=== PATIENT | female | born 1965 | race African-American/Black ===

== ENCOUNTER 2024-08-21 18:08 | Emergency (ER) | payer SELFPAY ==
[2024-08-21 18:12] VITALS: BP 153/78; PULSE 100; RESP 19; TEMP 36.6; O2SAT 99; BMI 36.6
--- NOTE | 2024-08-21 18:14 | ED.GENADULT ---
HPI - General Adult General Chief complaint: Urogenital-Female Stated complaint: ?URI & URI Time Seen by Provider: 08/21/24 19:58 Source: patient, RN notes reviewed and old records reviewed Mode of arrival: ambulatory Limitations: no limitations History of Present Illness ED Provider: Reggie LARRY narrative: Patient is a 58-year-old female presenting to the emergency department with complaint of dysuria as well as dark urine for the past 3 days. Also reports left flank pain and feeling general malaise. Has recently had nasal congestion, sore throat and right ear pain. Denies fevers. Denies abdominal pain, nausea, vomiting, diarrhea. Denies hematuria. MD complaint: Dysuria Onset (ago): day(s) Treatments prior to arrival: none Related Data Previous Rx's ?Medication ?Instructions ?Recorded cefuroxime axetil 250 mg tablet 250 mg PO BID #13 tabs 08/21/24 ondansetron 4 mg disintegrating 4 mg PO Q8H PRN nausea and 08/21/24 tablet vomiting #10 tabs phenazopyridine 100 mg tablet 100 mg PO TID PRN pain 6 doses #6 08/21/24 tabs Allergies Allergy/AdvReac Type Severity Reaction Status Date / Time No Known Allergies Allergy Verified 08/21/24 18:14 Review of Systems Review of Systems: As per HPI Yes all other systems are reviewed and are negative Constitutional: Constitutional: Reports as per HPI [facility] Social History Social History Advance Directives: No Advance Directives Information Provided: Yes Do you have a plan to hurt others: No Plan Physical Exam ED Vital Signs: Vital Signs - 24 hr 08/21/24 18:12 08/21/24 21:25 08/21/24 21:35 Temperature 98 F 98 F 98 F Pulse Rate 100 92 92 Respiratory Rate 19 20 20 Blood Pressure 153/78 H 148/76 H 148/76 H Pulse Oximetry 99 98 98 Oxygen Delivery Method Room Air Room Air Room Air BMI result Body Mass Index 36.6 Vital signs have been reviewed and appear to be correct. Blood pressure elevated. Heart rate normal. Respiratory rate normal. Temperature normal. Oxygen saturation normal. Const General: cooperative, healthy appearing and no acute distress Orientation/consciousness: oriented to person, oriented to place, oriented to time and patient oriented x3 Limitations: no limitations HENMT Head: Yes normocephalic and Yes atraumatic Ears: external ears normal General nose exam: Normal external nose present Face and sinus: Yes face symmetric Mouth: oropharynx normal and moist mucous membranes Throat: Yes uvula midline Eyes Pupils: Equal, round and reactive pupils present Neck Neck: Yes normal visual inspection and Yes supple Resp Effort & Inspection: normal respiratory effort and able to speak in complete sentences Auscultation: clear to auscultation bilaterally Cardio Rate: regular rate Rhythm: regular rhythm Heart sounds: S1 normal heart sound present and S2 normal heart sound present GI Palpation (GI): Soft to palpation and nontender Auscultation: normoactive bowel sounds General: Yes no CVA tenderness Back/Spine/Pelvis Back: no CVA tenderness Skin General skin exam: elasticity normal and turgor normal Neuro General: oriented to person, oriented to place, oriented to time, patient oriented x3, moves all extremities, no focal motor deficits and CN's II-XI intact bilaterally Cranial nerves: Yes Equal, round and reactive pupils present Cognition (Neuro): normal cognition Extrem General: Yes full ROM, Yes no pedal edema and Yes no calf tenderness Psych Mental Status: mental status grossly normal Affect: normal affect Thought process: Normal thought process present Course Course Course Narrative: This is a Rapid Medical Exam performed in triage by Sharonda Faulkner PA-C. Full HPI, ROS and PE to be performed by primary ED provider. 58-year-old female presenting to the ED c/o dysuria, dark urine, left flank pain, chills, and feeling unwell x 3 days. Also reports sore throat and ear pain. PE: Nontoxic appearing, +L CVAT, abd soft Plan: labs, UA, viral testing Medications Administered Discontinued Medications Generic Name Dose Route Start Last Admin Trade Name Chel PRN Reason Stop Dose Admin Cefuroxime Axetil 250 mg 08/21/24 21:17 08/21/24 21:26 Cefuroxime Axetil 250 Mg Tablet PO 08/21/24 21:18 250 mg ONCE ONE Administration Ondansetron HCl 4 mg 08/21/24 21:17 08/21/24 21:25 Ondansetron Odt 4 Mg Tab.Rapdis TRANSLINGU 08/21/24 21:18 4 mg ONCE ONE Administration Phenazopyridine HCl 200 mg 08/21/24 21:17 08/21/24 21:27 Phenazopyridine Hcl 200 Mg Tablet PO 08/21/24 21:18 200 mg ONCE ONE Administration Medical Decision Making Medical Decision Making [facility] Narrative: Patient is a 58-year-old female presenting to the emergency department with complaint of dysuria as well as dark urine for the past 3 days. On exam patient is awake, A+Ox3, BP elevated, VS otherwise WNL, afebrile, normal neurological exam without focal deficits, physical exam findings as above. Given reported symptoms and physical exam findings, initial differential includes but is not limited to UTI, pyelonephritis, viral illness, COVID, flu, RSV, otitis media. Labs unremarkable, no evidence of DAVID, no leukocytosis. Viral serology negative. Urinalysis notable for 1+ leukocytes, 2+ blood, positive nitrites, 11-20 wbc's, 4+ bacteria. Will treat for UTI with cefuroxime. Will send prescription for Zofran for nausea as well as Pyridium for discomfort. Advised patient to begin using normal saline spray to decrease mucus/sinus pressure. Follow-up with PCP as needed. Return precautions discussed at bedside. Patient verbalized understanding of and agreement with plan. Differential Diagnosis Differential Diagnoses: The differential diagnosis associated with the presentation includes As per [facility] Admission/Observation Consideration of admission/observation: Escalation of care including admission/observation considered Patient would have been admitted to the hospital had their work up had any findings where hospital admission was appropriate and their clinical presentation warranted hospital admission. Lab Data [facility] Lab Attestation statement: I reviewed the patient's lab results. As per [facility] 08/21/24 18:28 08/21/24 18:28 Labs: Lab Results 08/21/24 Range/Units 18:28 WBC 8.5 (4.8-10.8) X10*3/uL RBC 4.94 (4.20-5.50) X10*6/uL Hgb 13.2 (12.0-16.0) g/dl Hct 40.0 (37.0-47.0) % MCV 81.0 (80.0-98.0) fL MCH 26.7 L (27.0-33.0) pg MCHC 33.0 (31.0-35.0) g/dl RDW 13.2 (11.0-16.0) % Plt Count 333 (160-400) X10*3/uL MPV 10.4 (9.4-12.3) fL Immature Gran % (Auto) 0.1 (0.0-0.4) % Neut % (Auto) 55.4 (45-73) % Lymph % (Auto) 30.7 (20-40) % [place] % (Auto) 8.2 (2-11) % Eos % (Auto) 5.2 H (0-4) % Baso % (Auto) 0.4 (0-2) % Lymph # (Auto) 2.6 (1.2-4.9) X10*3/uL [place] # (Auto) 0.7 (0.1-1.2) X10*3/uL Eos # (Auto) 0.4 (0.0-0.4) X10*3/uL Baso # (Auto) 0.0 (0.0-0.2) X10*3/uL Abs Immat Gran (auto) 0.01 (0.00-0.03) X10*3/uL Absolute Neuts (auto) 4.7 (2.0-8.3) x10*3/uL Absolute Nucleated RBC 0.000 (0.0-0.012) X10*3/uL Nucleated RBC % (auto) 0.0 (0.0-0.2) /100WBC Sodium 142 (135-145) mmol/L Potassium 4.2 (3.3-5.1) mmol/L Chloride 110 H (96-108) mmol/L Carbon Dioxide 26 (22-29) mmol/L Anion Gap 10 L (12-20) BUN 19 H (9-16) mg/dL Creatinine 0.83 (0.5-1.4) mg/dL Estim Creat Clear Calc 76.4 Estimated GFR > 60 Random Glucose 100 (60-115) mg/dL Calcium 9.3 (8.4-10.2) mg/dL Magnesium 2.1 (1.6-2.6) mg/dL Total Bilirubin 0.2 (0.0-1.0) mg/dL Direct Bilirubin < 0.2 (0.0-0.5) mg/dL AST 25 (5-31) U/L ALT 33 H (0-31) U/L Alkaline Phosphatase 70 (39-117) U/L Total Protein 7.8 (6.5-8.0) g/dL Albumin 4.2 (3.5-5.0) g/dL Lipase 26 (8-78) U/L Urine Color Yellow Urine Appearance Clear Urine pH 5.5 (5.0-9.0) Ur Specific [place] 1.025 (1.005-1.025) Urine Protein Negative (Neg-Trace) mg/dL Urine Glucose (UA) Negative (Negative) mg/dL Urine Ketones Trace (Negative) mg/dL Urine Blood Moderate (2+) H (Negative) Urine Nitrite Positive H (Negative) Ur Leukocyte Esterase Small (1+) H (Negative) Urine RBC 3-5 H (0-2) /HPF Urine WBC 11-20 (0-5) /HPF Ur Squamous Epith Cells 0-2 (0-2) /HPF Urine Bacteria 4+ (None Seen) Hyaline Casts 0-2 (0-2) /LPF Influenza Type A (PCR) NEGATIVE (Negative) Influenza Type B (PCR) NEGATIVE (Negative) RSV RNA Qual (PCR) NEGATIVE (Negative) SARS-CoV-2 RNA (RT-PCR) NEGATIVE (Negative) External Record Review External record reviewed: Inpatient record, Office record and Outpatient record Prescription Management I considered prescription management with: Pain Medication, Antibiotic and Other Attestation Attending Attestation: I was personally present and available for consultation in the ED. I have reviewed everything on the chart that is available and agree with the documentation provided by the KATHRYN including discussion about the assessment, treatment plan and discussion. Based on medical record the care appears appropriate. Roel Nair MD [facility] Emergency Medicine Discharge Plan Discharge Clinical Impression: Urinary tract infection, Viral URI Patient Disposition: Home, Self-Care Instructions: Urinary Tract Infection in Women (DC), Upper Respiratory Infection (DC), Viral Syndrome (ED) Additional Instructions: You have been evaluated in the emergency department today for your urinary symptoms. Your evaluation, including urinalysis, suggests that your symptoms are due to urinary tract infection. Please take your prescribed antibiotics for the full course of medication as directed. You are also being prescribed ondansetron for nausea and phenazopyridine for bladder discomfort. Take all medications as prescribed. We also recommend that you begin using over the counter nasal saline spray several times daily to decrease your congestion. Please follow-up with your primary care provider within 2 days. Return to the emergency department if you experience fevers 100.4? F or greater, worsening or uncontrolled pain, vomiting, flank pain, or for any other concerning symptoms. Prescriptions: New ondansetron 4 mg tablet,disintegrating 4 mg PO Q8H PRN (Reason: nausea and vomiting) Qty: 10 0RF phenazopyridine 100 mg tablet 100 mg PO TID PRN (Reason: pain) Qty: 6 0RF cefuroxime axetil 250 mg tablet 250 mg PO BID Qty: 13 0RF Stand Alone Forms: Work/School Release Interventions: ED Discharge Assessment Last Done: 08/21/24 21:35 Discharge Date/Time: 08/21/24 21:35 Print Language: Sami
[2024-08-21 18:33] LABS: MANUAL DIFF FLAG NO
[2024-08-21 18:50] LABS: Basophils Percent Auto 0.4 % (0-2); Eosinophils Absolute Auto 0.4 X10*3/uL (0.0-0.4); Eosinophils Percent Auto 5.2 % (0-4); Hemoglobin 13.2 g/dl (12.0-16.0); Imm Gran Abs Auto 0.01 X10*3/uL (0.00-0.03); Imm Gran Pct Auto 0.1 % (0.0-0.4); Lymphocytes Absolute Auto 2.6 X10*3/uL (1.2-4.9); Lymphocytes Percent Auto 30.7 % (20-40); Mean Corpuscular Hemoglobin 26.7 pg (27.0-33.0); Mean Platelet Volume 10.4 fL (9.4-12.3); Monocytes Absolute Auto 0.7 X10*3/uL (0.1-1.2); Monocytes Percent Auto 8.2 % (2-11); Neutrophils Absolute Auto 4.7 x10*3/uL (2.0-8.3); Neutrophils Percent Auto 55.4 % (45-73); Platelet Count 333 X10*3/uL (160-400); Red Blood Count 4.94 X10*6/uL (4.20-5.50); Red Cell Distribution Width 13.2 % (11.0-16.0); White Blood Count 8.5 X10*3/uL (4.8-10.8)
[2024-08-21 18:52] LABS: Appearance Urine Clear; Color Urine Yellow; Glucose Urine UA Negative (Negative); Leukocyte Esterase Urine Small (1+) (Negative); Nitrite Urine Positive (Negative); PH 5.5 (5.0-9.0); Specific Gravity - Urine 1.025 (1.005-1.025); UMIC TRIGGER UACC YES; Urine Blood Moderate (2+) (Negative); Urine Ketones Trace mg/dL (Negative); Urine Protein Negative (Neg-Trace)
[2024-08-21 18:53] LABS: Alanine Aminotransferase 33 U/L (0-31); Albumin Level 4.2 g/dL (3.5-5.0); Alkaline Phosphatase 70 U/L (39-117); Anion Gap 10 (12-20); Aspartate Amino Transferase 25 U/L (5-31); Bilirubin Direct < 0.2 mg/dL (0.0-0.5); Bilirubin Total 0.2 mg/dL (0.0-1.0); Blood Urea Nitrogen 19 mg/dL (9-16); Calcium 9.3 mg/dL (8.4-10.2); Carbon Dioxide 26 mmol/L (22-29); Chloride 110 mmol/L (96-108); Creatinine Clr Calc Pharmacy 76.4; Estimated Glomerular Filt Rate > 60; Glucose Random 100 mg/dL (60-115); Lipase 26 U/L (8-78); Magnesium 2.1 mg/dL (1.6-2.6); Potassium 4.2 mmol/L (3.3-5.1); Sodium 142 mmol/L (135-145); Total Protein 7.8 g/dL (6.5-8.0)
[2024-08-21 19:02] LABS: Bacteria Urine 4+ (None Seen); Hyaline Casts Urine 0-2 /LPF (0-2); Squamous Epithelial Cell Urine 0-2 /HPF (0-2); UACC Culture Trigger YES
[2024-08-21 19:13] LABS: Influenza A PCR NEGATIVE (Negative); Influenza B PCR NEGATIVE (Negative); Resp Syncy Virus RNA Qual PCR NEGATIVE (Negative); SARS COV2 PCR INHOUSE NEGATIVE (Negative)
[2024-08-21 21:25] VITALS: BP 148/76; PULSE 92; RESP 20; TEMP 36.6; O2SAT 98
[2024-08-21] MEDS: Ondansetron ODT 4 MG TAB.RAPDIS TRANSLINGU (21:25)
[2024-08-21] MEDS: cefuroxime axetiL 250 MG TABLET PO (21:26)
[2024-08-21] MEDS: Phenazopyridine HCL 200 MG TABLET PO (21:27)
[2024-08-21 21:35] VITALS: BP 148/76; PULSE 92; RESP 20; TEMP 36.6; O2SAT 98
== END 2024-08-21 21:35 | disposition home or self-care (01) ==
PROVIDERS: Physician Assistant; Emergency Provider Emergency Medicine
DX: B34.9 Viral infection, unspecified (principal); N39.0 Urinary tract infection, site not specified; J02.9 Acute pharyngitis, unspecified; Z03.818 Encounter for observation for suspected exposure to other biological agents ruled out
CPT/HCPCS: 0241U; 36415; 80048; 80076; 81001; 81003; 83690; 83735; 85025; 87086; 87088; 87186; 99283

== ENCOUNTER 2025-02-10 20:07 | Emergency (ER) | payer OTHER, SELFPAY ==
[2025-02-10 20:23] VITALS: BP 117/63; PULSE 97; RESP 15; TEMP 36.7; O2SAT 100; BMI 37.9
--- NOTE | 2025-02-10 20:23 | ED.GENADULT ---
HPI - General Adult General Chief complaint: Urogenital-Female Stated complaint: Nausea, lower back pain, cloudy urine Time Seen by Provider: 02/10/25 22:39 History of Present Illness ED Provider: Roel Nair MD HPI narrative: [age] female no significant medical history aside from hypertension with 24 hours about of atraumatic left flank pain and cloudy malodorous urine. History of UTI felt similar. No kidney stone history or other urologic issues or recent instrumentation. Denies vaginal discharge or GI symptoms no abdominal pain. Related Data Previous Rx's ?Medication ?Instructions ?Recorded cefuroxime axetil 250 mg tablet 250 mg PO BID #13 tabs 08/21/24 ondansetron 4 mg disintegrating 4 mg PO Q8H PRN nausea and 08/21/24 tablet vomiting #10 tabs phenazopyridine 100 mg tablet 100 mg PO TID PRN pain 6 doses #6 08/21/24 tabs sulfamethoxazole 800 1 tab PO Q12H 10 days #20 tabs 02/10/25 mg-trimethoprim 160 mg tablet (Bactrim DS) lactobacillus combination no.4 3 3,000 mmu cells PO DAILY #10 caps 02/11/25 billion cell capsule (Probiotic) Allergies Allergy/AdvReac Type Severity Reaction Status Date / Time No Known Allergies Allergy Verified 02/10/25 20:26 PMFSH Social History Social History Advance Directives: No Advance Directives Information Provided: No Do you have a plan to hurt others: No Plan Patient : No Physical Exam ED Exam Exam: EXAM: Gen: Alert, awake, well appearing, well hydrated. Head: Atraumatic Eyes: Anicteric, Normal conjunctiva. ENT: Moist mucosa, no pallor. ? Neck: Supple. Skin: ?No observable rash or bruising on exposed or examined skin Respiratory: Breathing comfortably, No distress.Clear to auscultation bilaterally, symmetric chest expansion, No wheeze, rales, ronchi. Cardiovascular: Regular rate and rhythm. No murmurs or rub. Well perfused periphery, warm extremities. No edema. ? Abdominal: No focal tenderness. Soft, no objective distension. No palpable masses or obvious organomegaly. ?No guarding, no rebound tenderness or other peritoneal findings. : Mild tenderness left lower flank not CVA region no bruising. Neuro: Alert. Gross movement of all extremities intact. ? Psych: Calm. Cooperative. MSK: No grossly visible deformity. Vital signs: See flowsheet Vital Signs: Vital Signs - 24 hr 02/10/25 20:23 02/10/25 23:46 02/10/25 23:55 Temperature 98.0 F 97.8 F 97.8 F Pulse Rate 97 77 77 Respiratory Rate 15 14 14 Blood Pressure 117/63 121/60 121/60 Pulse Oximetry 100 99 99 Oxygen Delivery Method Room Air Room Air Room Air BMI result Body Mass Index 37.9 Course Course Course Narrative: This is an RME: Additional HPI, ROS, PE not included below will be deferred to primary provider. RME assessment and note performed by: Mariela Schmidt PA-C This is a 10-pqpc-qvg-female, with a hx of HTN, who presents to the ER with complaints of left sided back pain, cloudy urine, nausea. Back pain started 3-4 days ago. Malodorous urine. Subjective fevers. Plan: Labs, UA, further ER eval needed Reevaluation(s) Reevaluation #1: 02/14/25 patient's urine culture grew E coli that is sensitive to Bactrim which the patient was placed on. No change in treatment indicated. Time: 10:37 Medications Administered Discontinued Medications Generic Name Dose Route Start Last Admin Trade Name Delroyq PRN Reason Stop Dose Admin Acetaminophen 975 mg 02/10/25 23:36 02/10/25 23:50 Acetaminophen 325 Mg Tablet PO 02/10/25 23:37 975 mg ONCE ONE Administration Ketorolac Tromethamine 30 mg 02/10/25 23:36 02/10/25 23:49 Ketorolac Tromethamine 30 Mg/Ml Vial IM 02/10/25 23:37 30 mg ONCE ONE Administration Ondansetron HCl 4 mg 02/10/25 20:29 02/10/25 20:31 Ondansetron Odt 4 Mg Tab.Rapdis TRANSLINGU 02/10/25 20:30 4 mg ONCE ONE Administration Trimethoprim/Sulfamethoxazole 1 tab 02/10/25 23:36 02/10/25 23:50 Sulfamethox/Trimeth 800/160 Tablet PO 02/10/25 23:37 1 tab ONCE ONE Administration Procedures Procedure Narrative Procedure Narrative: EMERGENCY ULTRASOUND INTERPRETATION-Limited Retroperitoneal (Renal) [This study was ordered, performed, and interpreted by myself. The study reveals: Impression: NO EVIDENCE OF UROLOGIC OBSTRUCTION] [Indication: FLANK PAIN Bladder: ANECHOIC URINE Right Kidney: Not imaged Left Kidney: NO HYDRONEPHROSIS Performed by: Roel Nair MD Images were stored CPT: 45721] Medical Decision Making Medical Decision Making MDM Narrative: Medical Decision Making: Left flank pain and malodorous urine. Awake alert oriented not ill or toxic. No fever. Lab work reassuring. Leukocytes in the urine and very cloudy appearing grossly. Given the flank pain I think she needs treatment for at least 10 days for presumed pyelonephritis. Pain control with Toradol in the ED. Preliminary Favored Differential Diagnosis: Pyelonephritis, musculoskeletal pain, spasm, strain, kidney stone among additional considered etiologies Testing Interpreted Independently: Point of care ultrasound of the kidney without hydronephrosis. Normal appearing bladder Radiology or Lab testing Results Reviewed: Not Applicable Consults: Not Applicable Independent Historians/External Chart Reviews: Not Applicable Social Determinants of Health Impacting MDM/Planning: Not Applicable Lab Data 02/10/25 21:06 02/10/25 21:06 Labs: Lab Results 02/10/25 02/10/25 Range/Units 21:06 22:40 WBC 8.6 (4.8-10.8) X10*3/uL RBC 4.58 (4.20-5.50) X10*6/uL Hgb 12.4 (12.0-16.0) g/dl Hct 37.4 (37.0-47.0) % MCV 81.7 (80.0-98.0) fL MCH 27.1 (27.0-33.0) pg MCHC 33.2 (31.0-35.0) g/dl RDW 13.4 (11.0-16.0) % Plt Count 289 (160-400) X10*3/uL MPV 10.4 (9.4-12.3) fL Immature Gran % (Auto) 0.2 (0.0-0.4) % Neut % (Auto) 55.6 (45-73) % Lymph % (Auto) 33.9 (20-40) % [place] % (Auto) 7.0 (2-11) % Eos % (Auto) 3.1 (0-4) % Baso % (Auto) 0.2 (0-2) % Lymph # (Auto) 2.9 (1.2-4.9) X10*3/uL [place] # (Auto) 0.6 (0.1-1.2) X10*3/uL Eos # (Auto) 0.3 (0.0-0.4) X10*3/uL Baso # (Auto) 0.0 (0.0-0.2) X10*3/uL Abs Immat Gran (auto) 0.02 (0.00-0.03) X10*3/uL Absolute Neuts (auto) 4.8 (2.0-8.3) x10*3/uL Absolute Nucleated RBC 0.000 (0.0-0.012) X10*3/uL Nucleated RBC % (auto) 0.0 (0.0-0.2) /100WBC Sodium 140 (135-145) mmol/L Potassium 4.1 (3.3-5.1) mmol/L Chloride 107 (96-108) mmol/L Carbon Dioxide 26 (22-29) mmol/L Anion Gap 11 L (12-20) BUN 21 H (9-16) mg/dL Creatinine 1.26 (0.5-1.4) mg/dL Estim Creat Clear Calc 52.6 Estimated GFR 43 Random Glucose 97 (60-115) mg/dL Calcium 9.0 (8.4-10.2) mg/dL Magnesium 2.0 (1.6-2.6) mg/dL Total Bilirubin 0.2 (0.0-1.0) mg/dL Direct Bilirubin < 0.2 (0.0-0.5) mg/dL AST 15 (5-31) U/L ALT 24 (0-31) U/L Alkaline Phosphatase 75 (39-117) U/L Total Protein 6.9 (6.5-8.0) g/dL Albumin 4.2 (3.5-5.0) g/dL Urine Color Yellow Urine Appearance Clear Urine pH 6.0 (5.0-9.0) Ur Specific [place] 1.015 (1.005-1.025) Urine Protein Negative (Neg-Trace) mg/dL Urine Glucose (UA) Negative (Negative) mg/dL Urine Ketones Negative (Negative) mg/dL Urine Blood Trace H (Negative) Urine Nitrite Negative (Negative) Ur Leukocyte Esterase Small (1+) H (Negative) Urine RBC 0-2 (0-2) /HPF Urine WBC 6-10 H (0-5) /HPF Ur Squamous Epith Cells 0-2 (0-2) /HPF Urine Bacteria 4+ (None Seen) Hyaline Casts 0-2 (0-2) /LPF Discharge Plan Discharge Clinical Impression: Urinary tract infection Patient Disposition: Home, Self-Care Instructions: Urinary Tract Infection in Women (DC) Additional Instructions: DISCHARGE DIAGNOSES: Presumed UTI possibly kidney infection/pyelonephritis HISTORY OF PRESENTATION: ?Left flank pain cloudy urine EMERGENCY DEPARTMENT COURSE,TESTS, TREATMENTS: While in the ED today you had an ultrasound that did not show any blockage or indirect signs of kidney stones. Urinalysis had leukocytes. We started treatment with nonsteroidal anti-inflammatory medications and antibiotics in the ER. DISCHARGE MEDICATIONS: ?[We have made no changes to your regular medication regimen] We have added an antibiotic for 10 full days do not miss any doses take probiotics or 1 Citizen Of [place] yogurt per day while you are on antibiotics FOLLOW-UP: ?Call your primary or general physician soon as possible to discuss your symptoms, your ED visit and to discuss follow up plans Call PCP for follow up INSTRUCTIONS ?& RETURN PRECAUTIONS: If any symptoms change first call your primary physician, if it is after-hours your primary doctors office should have a provider ammonia solution preparer you can speak with. If the symptoms are severe or very concerning to you then call 911 or return to the ED. Return for high fevers, night sweats, severe pain Roel Nair MD Emergency Physician [facility] Prescriptions: New sulfamethoxazole-trimethoprim [Bactrim DS] 800-160 mg tablet 1 tab PO Q12H 10 Days Qty: 20 0RF Probiotic 3 billion cell capsule 3,000 mmu cells PO DAILY Qty: 10 0RF Rx Instructions: administer with a meal No Action ondansetron 4 mg tablet,disintegrating 4 mg PO Q8H PRN (Reason: nausea and vomiting) Qty: 10 0RF phenazopyridine 100 mg tablet 100 mg PO TID PRN (Reason: pain) Qty: 6 0RF cefuroxime axetil 250 mg tablet 250 mg PO BID Qty: 13 0RF Interventions: ED Discharge Assessment Last Done: 02/10/25 23:55 Discharge Date/Time: 02/10/25 23:57 Print Language: Irish
[2025-02-10 21:10] LABS: MANUAL DIFF FLAG NO
[2025-02-10 21:11] LABS: Hematocrit 37.4 % (37.0-47.0); Hemoglobin 12.4 g/dl (12.0-16.0); Imm Gran Abs Auto 0.02 X10*3/uL (0.00-0.03); Imm Gran Pct Auto 0.2 % (0.0-0.4); Lymphocytes Absolute Auto 2.9 X10*3/uL (1.2-4.9); Mean Corpuscular HGB Conc 33.2 g/dl (31.0-35.0); Mean Corpuscular Hemoglobin 27.1 pg (27.0-33.0); Mean Corpuscular Volume 81.7 fL (80.0-98.0); NRBC Abs Auto 0.000 X10*3/uL (0.0-0.012); NRBC Pct Auto 0.0 /100WBC (0.0-0.2); Platelet Count 289 X10*3/uL (160-400); Red Blood Count 4.58 X10*6/uL (4.20-5.50); White Blood Count 8.6 X10*3/uL (4.8-10.8)
[2025-02-10 21:25] LABS: Alanine Aminotransferase 24 U/L (0-31); Albumin Level 4.2 g/dL (3.5-5.0); Alkaline Phosphatase 75 U/L (39-117); Anion Gap 11 (12-20); Aspartate Amino Transferase 15 U/L (5-31); Blood Urea Nitrogen 21 mg/dL (9-16); Calcium 9.0 mg/dL (8.4-10.2); Carbon Dioxide 26 mmol/L (22-29); Chloride 107 mmol/L (96-108); Creatinine Clr Calc Pharmacy 52.6; Estimated Glomerular Filt Rate 43; Magnesium 2.0 mg/dL (1.6-2.6); Potassium 4.1 mmol/L (3.3-5.1); Sodium 140 mmol/L (135-145); Total Protein 6.9 g/dL (6.5-8.0)
--- NOTE | 2025-02-10 22:35 | PC.NURSE ---
assumed care of pt. Sates back pain started last week, it got worse today , nausea starting today, pt she came in to ED. Ibuprofen taken with no relief, no fever, no vomit. given cup for UDS. Pain 10/10 lower back, denies pain in abdomen or bladder when voiding.
[2025-02-10 22:50] LABS: Appearance Urine Clear; Glucose Urine UA Negative (Negative); PH 6.0 (5.0-9.0); Specific Gravity - Urine 1.015 (1.005-1.025); UMIC TRIGGER UACC YES
[2025-02-10 22:53] LABS: UACC Culture Trigger YES
[2025-02-10 23:46] VITALS: BP 121/60; PULSE 77; RESP 14; TEMP 36.6; O2SAT 99
[2025-02-10] MEDS: Sulfamethox/Trimeth 800/160 TABLET 1 TAB PO (23:50)
[2025-02-10 23:55] VITALS: BP 121/60; PULSE 77; RESP 14; TEMP 36.6; O2SAT 99
== END 2025-02-10 23:57 | disposition home or self-care (01) ==
PROVIDERS: Physician Assistant Medical; Emergency Provider Emergency Medicine
DX: N39.0 Urinary tract infection, site not specified (principal)
CPT/HCPCS: 36415; 76775; 80048; 80076; 81001; 83735; 85025; 87086; 87088; 87186; 96372; 99284; J1885